=== PATIENT | female | born 1945 | race Caucasian/White ===

== ENCOUNTER → 2018-01-09 13:16 | Outpatient (CLI) | payer MEDICARE ==
[2015-05-22 13:24] VITALS: BMI 28.4
[~2018-01-09 13:16] MED LIST: ASPIRIN EC81 M1 PO; ATIVAN1 MG PO; BACTRIM 400-801 TAB PO; BACTRIM DS TABL1 TAB PO; BENADRYL25 M1 PO; CELEXA10 MG PO; CELEXA20 MG PO; COZAAR25 MG PO; CYCLOBENZAPRINE10 MG PO; CYCLOBENZAPRINE5 MG PO; DEPAKOTE500 MG PO; HUMALOG 30100 UNITS/; IPRAT-ALBUT 0.5-3 ML UPD; LEVAQUIN500 MG PO; LEVEMIR100 U/M1 SC; LEVEMIR100 U/M1 SQ; LEXAPRO10 MG PO; LIPITOR10 MG PO; LISINOPRIL10 MG PO; LOPRESSOR25 MG PO; LYRICA25 MG; LYRICA50 MG PO; NORCO 5/325 TAB1 TA1 PO; OXYCONTIN10 MG; OXYCONTIN10 MG PO; PRILOSEC10 MG; PRILOSEC20 MG PO; PROTONIX40 MG PO; SEROQUEL25 MG PO; SEROQUEL50 MG PO; SYNTHROID200 MC1 PO; SYNTHROID25 MCG PO; SYNTHROID75 MCG; TRAZODONE HCL150 MG PO; XANAX0.25 MG; XANAX0.25 MG PO; XANAX0.5 MG PO; XANAX2 MG PO
== END | disposition home or self-care (01) ==
LOC: D.RAD 13:00
DX: R13.10 Dysphagia, unspecified (principal); R10.10 Upper abdominal pain, unspecified